=== PATIENT | female | born 1950 | race Caucasian/White ===

== ENCOUNTER 2021-04-22 12:57 | Outpatient (NON) | payer MEDICARE, OTHER, SELFPAY | END 2021-04-22 12:58 | disposition home or self-care (01) | LOC: CHSLAB 12:59 | PROVIDERS: Visit Provider Nurse Practitioner Family | DX: Z12.4 Encounter for screening for malignant neoplasm of cervix (principal) | CPT/HCPCS: 88175; G0145 ==

== ENCOUNTER 2021-06-04 16:01 | Outpatient (CLI) | payer MEDICARE, SELFPAY ==
[2021-06-04 17:05] LABS: Influenza A QL RT-PCR Negative (Negative); Influenza B QL RT-PCR Negative (Negative); SARS-CoV-2 RNA PCR Positive (Negative)
== END 2021-06-04 16:02 | disposition home or self-care (01) ==
LOC: CHSLAB 16:07
PROVIDERS: PCP Family Medicine; Visit Provider Nurse Practitioner Family
DX: J06.9 Acute upper respiratory infection, unspecified (principal); Z20.822 Contact with and (suspected) exposure to COVID-19
CPT/HCPCS: 87502; C9803; U0003; U0005

== ENCOUNTER 2021-06-05 11:03 | Outpatient (CLI) | payer MEDICARE, OTHER, SELFPAY ==
--- NOTE | 2021-06-05 11:10 | PC.NURSE ---
Pt to room 212 amb. A&Ox3. [facility] plan of care explained, consent signed. Pt has no questions or concerns. Oriented to room. Call matthew in reach, reminded to call with needs.
[2021-06-05] MEDS: ACETAMINOPHEN 325 MG TABLET 650 MG PO (11:29)
[2021-06-05] MEDS: diphenhydrAMINE HCl CAP 25 MG CAPSULE PO (11:30)
[2021-06-05] MEDS: FAMOTIDINE 20 MG TABLET PO (11:30)
[2021-06-05 11:34] VITALS: BP 117/70; PULSE 93; RESP 20; TEMP 38.1; O2SAT 97
--- NOTE | 2021-06-05 13:16 | PC.NURSE ---
Pt has no complaints. Discharged to home amb.
== END 2021-06-05 11:04 | disposition home or self-care (01) ==
LOC: CHSTREATRM 11:04
PROVIDERS: PCP Nurse Practitioner Family; Visit Provider Nurse Practitioner Family
DX: U07.1 COVID-19 (principal)
CPT/HCPCS: A9270; J7050; M0243; Q0244

== ENCOUNTER 2024-04-18 13:44 | Outpatient (CLI) | payer MEDICARE, OTHER, SELFPAY ==
--- NOTE | ~2024-04-18 | MM_ITS ---
EXAMINATION: MM screening clotilde BI w trever HISTORY: Screening TECHNIQUE: Craniocaudal and mediolateral oblique 3-D tomosynthesis images were obtained and synthetic 2-D images were generated. CAD analysis was submitted and interpreted. COMPARISON: 04/08/2018. BREAST PARENCHYMAL COMPOSITION: Dense: The breasts are heterogeneously dense, which may obscure small masses FINDINGS: There is no evidence of suspicious mass, calcification, or architectural distortion to sugg est malignancy in either breast. There has been no suspicious interval change. IMPRESSION: 1. No mammographic evidence of malignancy. 2. Recommend routine screening mammography in one year. BI-RADS Category 1: Negative Reviewed, dictated and finalized at location B.
== END 2024-04-18 13:45 | disposition home or self-care (01) ==
LOC: CHSIMG 13:47
PROVIDERS: PCP Family Medicine; Visit Provider Family Medicine
DX: Z12.31 Encounter for screening mammogram for malignant neoplasm of breast (principal)
CPT/HCPCS: 77063; 77067

== ENCOUNTER 2024-06-08 09:49 | Outpatient (CLI) | payer MEDICARE, SELFPAY ==
[2024-06-08 10:06] LABS: Hematocrit 41.5 % (35.0-42.0); Hemoglobin 14.2 g/dL (11.7-13.8); Mean Corpuscular HGB Conc 34.2 g/dL (32-36); Mean Corpuscular Hemoglobin 30.7 pg (27.0-31.0); Mean Corpuscular Volume 89.6 fL (78.0-102.0); Mean Platelet Volume 8.8 fl (9.2-11.8); Platelet Count Result 174 K/mm3 (150-420); Red Blood Count 4.63 M/mm3 (4.20-5.40); Red Cell Distribution Width 12.8 % (11.6-14.4); White Blood Count 3.8 K/mm3 (4.8-10.8)
[2024-06-08 10:31] LABS: Hemoglobin A1C 5.5 % (<5.7)
[2024-06-08 10:54] LABS: Alanine Aminotransferase 42 U/L (14-59); Alkaline Phosphatase 83 U/L (46-116); Anion Gap 10 mmol/L (4-12); Aspartate Amino Transferase 35 U/L (15-37); Bilirubin,Total 0.5 mg/dL (0.00-1.00); Blood Urea Nitrogen 17 mg/dL (7-18); Calcium 9.3 mg/dL (8.5-10.1); Carbon Dioxide 30 mmol/L (21-32); Chloride 103 mmol/L (98-108); Cholesterol 187 mg/dL (0-200); Estimated Glomerular Filt Rate > 60; Glucose 109 mg/dL (70-99); HDL Direct 49 mg/dL (40-60); LDL Cholesterol Calculated 115 mg/dL (<130); Osmolality Calculated 298 mOsm/kg (285-295); Potassium 5.1 mmol/L (3.5-5.1); Sodium 143 mmol/L (136-145); Total Protein 7.4 g/dL (6.4-8.2); Triglycerides 113 mg/dL (0-150)
[2024-06-08 11:00] LABS: Thyroid Stimulating Hormone Reflex 2.37 u/IU/mL (0.36-3.74)
[2024-06-08 11:04] LABS: Band Neutrophils Percent 0 % (0-6); Basophils Absolute Manual 0.03 K/mm3 (0-0.1); Basophils Percent Manual 1 % (0-1); Eosinophils Absolute Manual 0.07 K/mm3 (0.02-0.50); Eosinophils Percent Manual 2 % (1-6); Lymphocytes Absolute Manual 0.79 K/mm3 (1.1-4.5); Lymphocytes Percent Manual 21 % (18-44); Monocytes Percent Manual 8 % (3-9); Neutrophils Absolute Manual 2.58 K/mm3 (1.7-7.2); Neutrophils Percent Manual 68 % (46-73); Platelet Estimate Adequate (Adequate); Total Cells Counted 100
== END 2024-06-08 09:50 | disposition home or self-care (01) ==
LOC: CHSLAB 09:51
PROVIDERS: PCP Family Medicine; Visit Provider Nurse Practitioner Family
DX: Z13.6 Encounter for screening for cardiovascular disorders (principal); Z13.83 Encounter for screening for respiratory disorder NEC; Z13.89 Encounter for screening for other disorder; G47.00 Insomnia, unspecified; Z13.1 Encounter for screening for diabetes mellitus; M54.30 Sciatica, unspecified side
CPT/HCPCS: 36415; 80053; 80061; 83036; 84443; 85025

== ENCOUNTER 2024-09-30 18:08 | Emergency (ER) | payer MEDICARE, OTHER, SELFPAY ==
[2024-09-30] VITALS (24 sets, daily range): BP systolic 168–208; BP diastolic 82–99; PULSE 73–88; RESP 12–18; TEMP 36.4; O2SAT 96–100
--- NOTE | ~2024-09-30 | CT_ITS ---
EXAMINATION: CT brain wo con DATE: 09/30/2024 18:27 INDICATION: CVA, unable to move Lt. leg . TECHNIQUE: Computed tomography (CT) of the head was performed without intravenous contrast. The mA wa s adjusted according to patient size. Iterative reconstruction technique was employed. The dose-lengt h product was 605.33 mGy-cm. COMPARISON: None. FINDINGS: No acute intracranial hemorrhage or extra-axial fluid collection. No hydrocephalus, mass, or herniation. No acute ischemic infarct. Subtle hypodensity in the posterior limb of the internal capsule on the ri ght (axial image 29/64). Unremarkable dural venous sinus attenuation. No acute osseous abnormality. The aerated spaces are clear. IMPRESSION: No acute intracranial hemorrhage. Subtle hypodensity in the posterior limb of the internal capsule on the right, may represent small fo wale infarct. Consider MR of the brain for further evaluation. Results reported telephonically to Dr. Hernandez by Dr. Rausch at 6:36PM on 09/30/2024. Reviewed, dictated and finalized at location K. IMPRESSION: No acute intracranial hemorrhage. Subtle hypodensity in the posterior limb of the internal capsule on the right, may represent small focal infarct. Consider MR of the brain for further evaluat ion. Results reported telephonically to Dr. Hernandez by Dr. Rausch at 6:36PM on 09/30.
--- OUTSIDE RECORDS SUMMARY | 2024-09-30 18:09 | XMS_ITS | Clinical Summary ---
Author Organization [facility] Address [address] [place] [address] Care Team Providers Care Oxidized Finish Plater Name Role Phone Unavailable Primary Care Provider Unavailabl e Social History Tobacco Use Types Packs/Day Years Used Date Smoking Tobacco: Never Assessed Comments Unknown Sex and Gender Information Value Date Recorded Sex Assigned at Not on file Legal Sex Female 8:14 PM CDT Gender Identity Not on file Sexual Orientation Not on file Plan of Treatment Health Maintenance Due Date Last Done Comments Colorectal Cancer Screening Colonoscopy (10 Years) 1950 Hepatitis C 1970 DTaP, Tdap and Td Vaccines ( 1 - Tdap) 11/24/1971 Mammogram Screening 1992 Zoster Vaccines (1 of 2) 2002 Dexa Scan (General) 2017 Pneumococcal Vaccine: 65+ Ye ars (1 of 1 - PCV) 2017 COVID-19 Vaccine ( - 2023-2 5 season) 2024 Influenza Adult (#1) 2024 RSV Immunization or 60+ Years (1 - 1-dose 75+ series) 11/24/2027 Meningococcal B Vaccine Aged Out No l onger eligible based on patient's age to complete this topic Meningococcal Vaccine Aged Out No holly lakisha eligible based on patient's age to complete this topic RSV Immunizations Under 20 Months Aged Out No longer eligible based on patient's age to complete this topic
--- NOTE | 2024-09-30 18:10 | PC.NURSE ---
Per Dr Hernandez patient is to remain NPO, no dysphagia assessment done.
--- NOTE | 2024-09-30 18:13 | ECG_ITS ---
Test Date: 2024-09-30 18:30:21 Measurements Intervals [place] Rate: 77 P: 61 WV: 195 QRS: 44 QRSD: 84 T: 88 QT: 392 QTc: 446 Interpretive Statements SINUS RHYTHM SEPTAL MYOCARDIAL INFARCTION , OF INDETERMINATE AGE [40+ ms Q WAVE IN V1/V2] ABNORMAL ECG No previous ECG available for comparison Electronically Signed On 10-01-2024 06:54:30 CDT by Renzo Clark M.D.
--- NOTE | 2024-09-30 18:15 | ED_ITS ---
HPI - Neuro Symptoms/Deficit General Chief Complaint: Neuro Symptoms/Deficit Stated Complaint: WEAKNESS Time Seen by Provider: 09/30/24 18:13 Source: patient and family Mode of arrival: wheelchair Limitations: no limitations History of Present Illness HPI Narrative: Patient is a 73-year-old female with left-sided weakness to include her arm and her leg for the past 20 minutes. Last known well 5:45 p.m.. This was an acute onset situation. No other complaints at this time. Onset (ago): minute(s) ( Twenty) Timing confirmed by: spouse and family member Location: left arm and left leg History of same: No Severity: moderate Quality: weak, numb, constant and improving ( patient noted left lower extremity improvement in the emergency room while examining the patient) Relieving factors: time Exacerbating factors: none Context: sudden onset On Anticoagulants: No Associated symptoms: weakness ( left upper and lower extremity) Treatments Prior to Arrival: none Related Data Home Medications ?Medication ?Instructions ?Recorded ?Confirmed ?Last Taken ?Type multivitamin 1 tablet PO DAILY 04/21/21 04/22/21 Unknown History Allergies Allergy/AdvReac Type Severity Reaction Status Date / Time quinine Allergy Unknown unknown Verified 09/30/24 18:16 Sulfa (Sulfonamide Allergy Unknown unknown Verified 09/30/24 18:16 Antibiotics) Sulfonamides Allergy Intermediate unknown Uncoded 09/30/24 18:16 1 SULFA 2.QUININE Allergy Unknown unknown Uncoded 09/30/24 18:16 NKFA Allergy Unknown unknown Uncoded 09/30/24 18:16 SULFAMERAZINE (Generic Allergy Y Uncoded 09/30/24 18:16 Allergy) Review of Systems 2 Review of Systems: All systems reviewed & are unremarkable except as noted in HPI and below Constitutional: Constitutional: Reports no additional constitutional complaints Eyes: Eyes: Reports no additional eye complaints ENT: Reports system reviewed and no additional complaints, except as documented Cardiovascular: Cardiovascular: Reports no additional cardiovascular complaints Respiratory: Respiratory: Reports no additional respiratory complaints Gastrointestinal: Gastrointestinal: Reports no additional gastrointestinal complaints Genitourinary: Genitourinary: Reports no additional female genitourinary complaints Musculoskeletal: Musculoskeletal: Reports no additional musculoskeletal complaints Integumentary/Breasts: Skin/Breast: Reports system reviewed and no additional complaints, except as docu Neurologic: Reports system reviewed and no additional complaints, except as documented Psychiatric: Psychiatric: Reports no additional psychiatric complaints Endocrine: Endocrine: Reports no additional endocrine complaints Hematologic/Lymphatic: Hematologic/Lymphatic: Reports no additional hematologic/lymphatic complaints Allergic/Immunologic: Allergic/Immunologic: Reports no additional allergic/immunologic complaints PMFSH Past Medical History Medical History Impacted cerumen of both ears Routine physical examination Encounter for screening mammogram for malignant neoplasm of breast Radiculopathy Surgical History Surgical History History of cholecystectomy History of appendectomy Family History Family History Father Heart disease Mother Diabetes mellitus Breast cancer Mets to brain and bone Social History Social History Smoking status: Never smoker Alcohol intake: never Substance use: never Substance use type: does not use Living arrangements: with family Additional living arrangements comments: , no children Occupation/Education: retired Gender identity (if verbalized by the patient): Female Exam 2 Const: General: healthy appearing Nutritional Appearance: well nourished Orientation/consciousness: patient oriented x3 Limitations: no limitations HENMT: Head: normal to inspection Ears: external ears normal F khloe/Nose/Sinus: Normal external nose present Eyes: Conjunctivae: conjunctivae normal Pupils: Equal, round and reactive pupils present EOM: EOMs intact bilaterally Neck: Neck: normal visual inspection Chest: Chest palpation & inspection: normal inspection of the chest Resp: Effort & Inspection: normal respiratory effort and not labored A uscultation: clear to auscultation bilaterally and no crackles Cardio: Rate: regular rate Rhythm: regular rhythm Heart sounds: no murmurs GI: Inspection: non-distended GI Palp: Yes Soft to palpation and No Tenderness to palpation present (GI) Auscultation: normal bowel sounds : General: Yes bladder normal to palpation Back/Spine/Pelvis: Back: no CVA tenderness Skin: General skin exam: normal color Rashes: no rashes Wounds: no wounds Neuro: General: patient oriented x3, No moves all extremities, no meningeal signs, No no focal motor deficits and CN's II-XI intact bilaterally Cranial nerves: Yes Nystagmus not present Speech: normal speech Gait exam (Neuro): gait abnormal Other: fast exam positive, NIH score is 3, GCS is 15 ( recheck NIH score at 6:34 p.m. and 1853 = 2) Extrem: General: normal to inspection Psych: Mental Status: mental status grossly normal Affect: normal affect Attitude: cooperative Course Vital Signs Vital signs: Vital Signs Oxygen Delivery Room Air 09/30/24 18:08 Temperature 36.4 C 09/30/24 18:13 Pulse Rate 73 09/30/24 19:33 Respiratory Rate 14 09/30/24 19:31 Blood Pressure 174/84 H 09/30/24 19:30 Pulse Oximetry 98 09/30/24 19:31 Oxygen Delivery Room Air 09/30/24 19:15 MDM - Neuro Symptoms/Deficit MDM Narrative Medical decision making narrative: patient is a 73-year-old female with left upper and lower extremity weakness acute onset 20 minutes prior to arrival. We will do stroke protocol at this time. I discussed the case with Dr. GAMA the neurologist at [facility] and he accepted the patient to be met in the emergency room. He wanted the patient as soon as possible so we will get Helicopter. Further he said do not add more blood pressure medicine. Current blood pressure is 160s to 170s. I gave blood pressure medicine of labetalol when the pressure was 220. specialist and not want aspirin or any blood thinners at this time. He wanted IV fluids. Lab Data Attestation: I reviewed the patient's lab results. 09/30/24 18:14 09/30/24 18:14 Labs: Lab Results 09/30/24 09/30/24 Range/Units 18:13 18:14 WBC 4.6 L (4.8-10.8) K/mm3 RBC 4.73 (4.20-5.40) M/mm3 Hgb 14.0 H (11.7-13.8) g/dL Hct 42.1 H (35.0-42.0) % MCV 89.0 (78.0-102.0) fL MCH 29.6 (27.0-31.0) pg MCHC 33.3 (32-36) g/dL RDW 12.9 (11.6-14.4) % Plt Count 169 (150-420) K/mm3 MPV 9.0 L (9.2-11.8) fl Immature Gran % (Auto) 0.2 H (0.0-0.0) % Neut % (Auto) 65.3 (50.0-70.0) % Lymph % (Auto) 25.5 (18.0-42.0) % [place] % (Auto) 6.9 (2.0-11.0) % Eos % (Auto) 1.7 (1.0-6.0) % Baso % (Auto) 0.4 (0.0-1.0) % Lymph # (Auto) 1.18 (1.10-4.50) K/mm3 [place] # (Auto) 0.32 (0.10-0.90) K/mm3 Eos # (Auto) 0.08 (0.02-0.50) K/mm3 Baso # (Auto) 0.02 (0.00-0.10) K/mm3 Abs Immat Gran (auto) 0.01 H (0.00-0.00) K/mm3 Absolute Neuts (auto) 3.02 (1.70-7.20) K/mm3 Absolute Nucleated RBC 0.00 (0.00-0.00) K/mm3 Nucleated RBC % 0.0 (0-0.0) % PT 10.4 (9.50-12.1) Seconds INR 0.9 APTT 27.9 (23.9-30.70) Sec Sodium 140 (136-145) mmol/L Potassium 3.4 L (3.5-5.1) mmol/L Chloride 102 (98-108) mmol/L Carbon Dioxide 28 (21-32) mmol/L Anion Gap 10 (4-12) mmol/L BUN 20 H (7-18) mg/dL Creatinine 0.89 (0.55-1.02) mg/dL Estim Creat Clear Calc 51 ml/min Estimated GFR > 60 (59 - ) Glucose 123 H (70-99) mg/dL POC Capillary Glucose 113 H (65-105) mg/dl Calculated Osmolality 293 (285-295) mOsm/kg Calcium 9.0 (8.5-10.1) mg/dL Total Bilirubin 0.4 (0.00-1.00) mg/dL AST 20 (15-37) U/L ALT 33 (14-59) U/L Alkaline Phosphatase 101 (46-116) U/L Troponin I 14.0 (0.00-60.4) ng/L Total Protein 8.1 (6.4-8.2) g/dL Albumin 4.1 (3.4-5.0) g/dL Imaging Data Attestation: I personally reviewed and interpreted this imaging study as follows: Radiologist's impression: CT scan of the head shows IMPRESSION: No acute intracranial hemorrhage. Subtle hypodensity in the posterior limb of the internal capsule on the right, may represent small focal infarct. Consider MR of the brain for further evaluation. ECG Data EKG #1: Attestation: I personally reviewed and interpreted this ECG as follows: ECG completion date: 09/30/24 ECG completion time: 18:32 EKG Interpretation: normal rate, no ectopy, non-specific ST changes, normal QRS, normal QT and NL axis Critical Care Time Critical Care Time Critical Care Time: Yes Total Critical Care Time: 45 Discharge Plan Discharge Clinical Impression: Acute CVA (cerebrovascular accident) Patient Disposition: Acute Care Hospital Condition: Guarded Prognosis Patient Language: Slovak Prescriptions: No Action multivitamin Tablet 1 tablet PO DAILY Follow-up/Referrals: Jayson Collazo DO [Primary Care Provider] - Time of Disposition: 19:46
[2024-09-30 18:16] LABS: Glucose Point of Care 113 mg/dl (65-105)
[2024-09-30 18:27] LABS: Basophils Absolute Auto 0.02 K/mm3 (0.00-0.10); Basophils Percent Auto 0.4 % (0.0-1.0); Eosinophils Absolute Auto 0.08 K/mm3 (0.02-0.50); Eosinophils Percent Auto 1.7 % (1.0-6.0); Hematocrit 42.1 % (35.0-42.0); Immature Granulocyte Absolute 0.01 K/mm3 (0.00-0.00); Immature Granulocyte Percent A 0.2 % (0.0-0.0); Lymphocytes Absolute Auto 1.18 K/mm3 (1.10-4.50); Lymphocytes Percent Auto 25.5 % (18.0-42.0); Mean Corpuscular HGB Conc 33.3 g/dL (32-36); Mean Corpuscular Hemoglobin 29.6 pg (27.0-31.0); Monocytes Absolute Auto 0.32 K/mm3 (0.10-0.90); Monocytes Percent Auto 6.9 % (2.0-11.0); Neutrophils Absolute Auto 3.02 K/mm3 (1.70-7.20); Neutrophils Percent Auto 65.3 % (50.0-70.0); Platelet Count Result 169 K/mm3 (150-420); Red Blood Count 4.73 M/mm3 (4.20-5.40); Red Cell Distribution Width 12.9 % (11.6-14.4); White Blood Count 4.6 K/mm3 (4.8-10.8)
[2024-09-30 18:39] LABS: INR 0.9; Partial Thromboplastin Time 27.9 Sec (23.9-30.70); Prothrombin Time 10.4 Seconds (9.50-12.1)
[2024-09-30 18:42] LABS: Alanine Aminotransferase 33 U/L (14-59); Albumin Level 4.1 g/dL (3.4-5.0); Alkaline Phosphatase 101 U/L (46-116); Anion Gap 10 mmol/L (4-12); Aspartate Amino Transferase 20 U/L (15-37); Bilirubin,Total 0.4 mg/dL (0.00-1.00); Blood Urea Nitrogen 20 mg/dL (7-18); Carbon Dioxide 28 mmol/L (21-32); Chloride 102 mmol/L (98-108); Estimated CRCL calculation 51 ml/min; Estimated Glomerular Filt Rate > 60; Glucose 123 mg/dL (70-99); Osmolality Calculated 293 mOsm/kg (285-295); Potassium 3.4 mmol/L (3.5-5.1); Sodium 140 mmol/L (136-145); Total Protein 8.1 g/dL (6.4-8.2)
[2024-09-30] MEDS: LABETALOL HCL INJ 100 MG/20 ML VIAL 10 MG IV PUSH (18:44)
[2024-09-30] MEDS: SODIUM CHLORIDE 0.9% IV 1,000 ML 150 ML IV CONT (20:00)
[2024-09-30 20:41] LABS: Add Urine Microscopic? YES; Appearance Urine Clear (Clear); Bilirubin Urine Negative (Negative); Blood Urine Negative (Negative); Color Urine Light Yellow (Yellow); Glucose Urine UA Negative (Negative); Ketones Urine Negative (Negative); Leukocyte Esterase Ur Trace LEU/UL (Negative); Nitrate Urine Negative (Negative); Protein Urine Negative (Negative); Specific Grav Ur <= 1.005 (1.010-1.020); Urobilinogen Urine 0.2 mg/dL (0.2-1.0)
[2024-09-30 20:45] LABS: WBC Urine None seen /hpf (0-3)
== END 2024-09-30 20:33 | disposition short-term general hospital (02) ==
PROVIDERS: Emergency Provider Emergency Medicine; PCP Family Medicine
DX: I63.9 Cerebral infarction, unspecified (principal)
CPT/HCPCS: 36415; 70450; 80053; 81001; 82948; 84484; 85025; 85610; 85730; 93005; 96361; 96374; 99285; J7030

== ENCOUNTER 2025-02-14 11:31 | Outpatient (CLI) | payer MEDICARE, OTHER, SELFPAY ==
[2025-02-14 11:45] LABS: Hematocrit 41.8 % (35.0-42.0); Hemoglobin 13.8 g/dL (11.7-13.8); Immature Granulocyte Percent A 0.5 % (0.0-0.0); Lymphocytes Absolute Auto 0.85 K/mm3 (1.10-4.50); Mean Corpuscular HGB Conc 33.0 g/dL (32-36); Mean Corpuscular Hemoglobin 30.3 pg (27.0-31.0); Mean Corpuscular Volume 91.7 fL (78.0-102.0); Nucleated Red Blood Cells Absolute Auto 0.00 K/mm3 (0.00-0.00); Nucleated Red Blood Cells Perc 0.0 % (0-0.0); Platelet Count Result 155 K/mm3 (150-420); Red Blood Count 4.56 M/mm3 (4.20-5.40); White Blood Count 5.9 K/mm3 (4.8-10.8)
--- OUTSIDE RECORDS SUMMARY | 2025-02-14 11:45 | XMS_ITS | Clinical Summary ---
Author Organization [facility] Address [address] [place] [address] Care Team Providers Care Stone Setter Apprentice Name Role Phone Unavailable Primary Care Provider [...] 1 - Tdap) 11/24/1971 Mammogram Screening 1992 Pneumococcal Vaccine: 50+ Ye ars (1 of 1 - PCV) 2002 Zoster Vaccines (1 of 2) 2002 Dexa Scan (General) 2017 COVID-19 Vaccine ( - 2023-2 5 season) 2024 RSV Immunization or 60+ Years (1 [...]
--- OUTSIDE RECORDS SUMMARY | 2025-02-14 11:45 | XMS_ITS | Clinical Summary ---
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 10/01/2024 Mixed hyperlipidemia 10/01/2024 Benign hypertension 10/01/2024 Resolved Problems Problem Noted Date Diagnosed Date Resolved Date Stroke-like symptom 10/01/2024 10/03/19 25 Elevated troponin 10/01/2024 10/02/2024 Elevated blood pressure read ing without diagnosis of hypertension 10/01/2024 10/02/2024 Encounters Date Type Department Care Team Description 02/06/2025 External Device Data ST[facility] ABSTRACTION Provider, Abstract 02/05/2025 External Device Data ST[facility] ABSTRACTION Provider, Abstract 02/05/2025 External Device Data STL ABSTRACTION Provider, Abstract 12/19/2024 External Device Data STL ABSTRACTION Provider, Abstract 12/04/2024 External Device Data STL ABSTRACTION Provider, Abstract 11/27/2024 External Device Data STL ABSTRACTION Provider, Abstract from Last 3 Months Social History Tobacco Use Types Packs/Day Years Used Date Smoking Tobacco: Never Smokeless Tobacco: Never Tobacco Cessation:Counseling Given: Not Answered Alcohol Use Standard Drinks/Week Comments Never 0 (1 standard drink = 0.6 oz pur e alcohol) Comments No Sex and Gender Information Value Date Recorded Sex Assigned at Not on file Legal Sex Female 7:31 PM CDT Gender Identity Not on file Sexual Orientation Not on file Last Filed Vital Signs Vital Sign Reading Time Taken Comments Blood Pressure 134/67 10/02/2024 12:02 PM CDT Pulse 76 10/02/2024 12:02 PM CDT Temperature 37.1 C (98.7 F) 10/02/2024 9:07 AM CDT Respiratory Rate 18 10/02/2024 12:0 2 PM CDT Oxygen Saturation 100% 10/02/2024 9:07 AM CDT Inhaled Oxygen Concentration - - Weight 66.1 kg (145 lb 11.6 oz) 10/01/2024 3:44 AM CDT Height 172.7 cm (5' 8) 10/01/2024 3:44 AM CDT Body Mass Index 22.16 10/01/2024 3:44 AM CDT Plan of Treatment Health Maintenance Due Date Last Done Comments DTAP/TDAP/TD VACCINES (1 - Tdap) 11/24/1971 BREAST CANCER SCREENING 1992 COLORECTAL SCREENING 1997 Colorectal Cancer Screening 1997 FIT-DNA Q 3 years 1997 FIT/FOBT Q 1 year 1997 Flex Sig/CT Colonography Q 5 years 1997 PNEUMOCOCCAL VACCINE 50+ YEARS (1 of 1 - PCV) 11/24/19 03 ZOSTER VACCINE (1 of 2) 2002 OSTEOPOROSIS SCREENING 2017 INFLUENZA VACCINE (#1) 2025 RSV VACCINE (60+ or ) (1 - 1-dose 75+ series) 11/24/2027 Insurance MEDICARE PART A AND B [employer] [facility] [employer] Medicare Part D Advance Directives For more information, please contact: [phone] * Full Code (Latest Code Status on File) Date Activated Date Inactivated Comments 10/01/2024 1:15 AM 10/02/2024 3:12 PM
[2025-02-14 12:06] LABS: Alanine Aminotransferase 43 U/L (6-35); Albumin Level 4.4 g/dL (3.5-5.1); Alkaline Phosphatase 84 U/L (38-126); Anion Gap 7 mmol/L (4-12); Aspartate Amino Transferase 39 U/L (14-36); Bilirubin,Total 0.8 mg/dL (0.2-1.3); Blood Urea Nitrogen 22 mg/dL (7-17); Calcium 9.6 mg/dL (8.4-10.2); Carbon Dioxide 29 mmol/L (22-30); Chloride 104 mmol/L (98-107); Estimated Glomerular Filt Rate 55; Glucose 99 mg/dL (65-110); Osmolality Calculated 293 mOsm/kg (285-295); Potassium 4.2 mmol/L (3.4-5.0); Sodium 140 mmol/L (137-145); Total Protein 7.4 g/dL (6.3-8.2)
[2025-02-14 12:37] LABS: Thyroid Stimulating Hormone Reflex 2.760 uIU/mL (0.465-4.68)
[2025-02-14 13:12] LABS: Vitamin B12 955.0 pg/mL (239-931)
== END 2025-02-14 11:32 | disposition home or self-care (01) ==
LOC: CHSLAB 11:33
PROVIDERS: PCP Family Medicine; Visit Provider Family Medicine
DX: E53.8 Deficiency of other specified B group vitamins (principal); R53.83 Other fatigue; E03.9 Hypothyroidism, unspecified; R74.01 Elevation of levels of liver transaminase levels
CPT/HCPCS: 36415; 80053; 80074; 82607; 82746; 84443; 85025

== ENCOUNTER 2025-03-05 08:46 | Outpatient (CLI) | payer MEDICARE, OTHER, SELFPAY ==
--- NOTE | ~2025-03-05 | DEXA_ITS ---
Bone Density Report Name: EDMUND SOUSA Age: 74 Sex: Female Ethnicity: White Date of : 1950 Indication: postmenopausal; screening for osteoporosis; Referring Provider: Jayson Collazo Study: Bone densitometry was performed. Exam Date: March 05, 2025 Accession number: [id number] Bone Density: Region BMD T-score Z-score Classification AP Spine(L1, L2, L3) 0.926 -0.8 1.4 Normal Femoral Neck (Left) 0.668 -1.6 0.3 Osteopenia Total Hip (Left) 0.839 -0.8 0.8 Normal Femoral Neck (Right) 0.619 -2.1 -0.1 Osteopenia Total Hip (Right) 0.810 -1.1 0.5 Osteopenia Femoral Neck Mean 0.644 -1.8 0.1 Osteopenia Total Hip Mean 0.824 -1.0 0.7 Normal World Health Organization criteria for BMD impression classify patients as: Normal (T-score at or above -1.0), Osteopenia (T-score between -1.0 and -2.5), or Osteoporosis (T-score at or below -2.5). 10-year Fracture Risk(1): Major Osteoporotic Fracture 12% Hip Fracture 2.7% Reported Risk Factors: [place] (), Neck BMD=0.619, BMI=21.7 (1) FRAX(R) Version 3.08. Fracture probability calculated for an untreated patient. Fracture probability may be lower if the patient has received treatment. Clinical Information Provided by Patient: Patient maximum height was 68 Menopause Age: 52 No regular weight bearing exercise Does not regularly consume dairy products Drinks caffeinated beverages Onset of menses at age 16 Number of children 0 Impression: The patient has low bone mass, based on the Right Femoral Neck T-score. Discussion: BONE DENSITY IS LOW AT ONE OR MORE SKELETAL SITES. This patient's lowest T-score is low at one or more skeletal sites. It meets the World Health Organization's (WHO) criteria for ?low bone mass? (T-score between -1.0 and -2.5). The patient's 10-year risk of fracture as calculated by FRAX is less than the threshold where pharmacological therapy is recommended by the National Osteoporosis Foundation (NOF). However, all treatment decisions require clinical judgment and consideration of individual patient factors, including patient preferences, comorbidities, previous drug use, risk factors not captured in the FRAX model (e.g., frailty, falls, vitamin D deficiency, increased bone turnover, interval significant decline in bone density) and possible under or overestimation of fracture risk by FRAX. The patient should follow a healthful lifestyle (good nutrition with adequate calcium and vitamin D, and appropriate weight-bearing exercise). Follow-Up: Consider repeating this study in 2 to 3 years to reassess this patient's status, or sooner if there is some new clinical indication. Reported by: NARENDRA on 03/15/2025 8:02:00 AM. Reviewed, dictated and finalized at location Q.
--- OUTSIDE RECORDS SUMMARY | 2025-03-05 08:54 | XMS_ITS | Clinical Summary ---
Author Organization [facility] Address [address] [place] [address] Phone Care Team Providers Care Manager Fine Dining Name Role Phone Unavailable Primary Care Provider [...] drink = 0.6 oz pur e alcohol) Feeling Safe Answer Date Recorded Are you in a relationship wi th someone who hurts you emotionally and/or physically? No 09/30/2024 Food Insecurity Answer Date Recorded Patient needs follow up regardin 10/25/2024 Transportation Needs Answer Date Record ed Patient needs follow up regardin 10/25/2024 Housing Stability Answer Date Recorded Social/Environmental Concerns No concerns Utility Needs Answer Date Recorded Patient needs follow up regardin 10/25/2024 Comments No Sex and Gender Information Value [...] MEDICARE PART A AND B [employer]IC[employer] Medicare Part D Advance Directives For more information, please contact: [phone] * Full Code (Latest Code Status on File) Date Activated Date Inactivated Comments 10/01/2024 1:15 AM 10/02/2024 3:12 PM
--- OUTSIDE RECORDS SUMMARY | 2025-03-05 08:54 | XMS_ITS | Clinical Summary ---
Author Organization [facility] Address [address] [place] [address] Care Team Providers Care Teleradiologist Name Role Phone Unavailable Primary Care Provider [...]
[2025-03-05 09:20] LABS: Hemoglobin A1C 5.8 % (<5.7)
[2025-03-05 09:38] LABS: Cholesterol 134 mg/dL (0-200); HDL Direct 49 mg/dL; Triglycerides 174 mg/dL (<150)
== END 2025-03-05 08:47 | disposition home or self-care (01) ==
LOC: CHSIMG 08:48
PROVIDERS: PCP Family Medicine; Visit Provider Family Medicine
DX: E11.9 Type 2 diabetes mellitus without complications (principal); I63.9 Cerebral infarction, unspecified; M85.89 Other specified disorders of bone density and structure, multiple sites
CPT/HCPCS: 36415; 77080; 80061; 83036

== ENCOUNTER 2025-06-13 13:15 | Outpatient (CLI) | payer MEDICARE, OTHER, SELFPAY ==
--- NOTE | ~2025-06-13 | MM_ITS ---
EXAMINATION: MM screening clotilde BI w trever HISTORY: Screening. TECHNIQUE: Craniocaudal and mediolateral oblique 3-D tomosynthesis images were obtained and synthetic 2-D images were generated. CAD analysis was submitted and interpreted. COMPARISON: 2023 BREAST PARENCHYMAL COMPOSITION: Dense: The breasts are heterogeneously dense FINDINGS: No suspicious masses are seen. There are no suspicious calcifications. No unexplained architectural distortion is seen. There are no skin or nipple abnormalities identified. There is no adenopathy seen on the images submitted. IMPRESSION: No mammographic evidence to suggest malignancy is seen. The patient may return to screening mammography as per ACR guidelines. BI-RADS 1 - Negative. Reviewed, dictated and finalized at location C. ITECTURAL PRACTICE MANAGER
== END 2025-06-13 13:16 | disposition home or self-care (01) ==
PROVIDERS: PCP Family Medicine; Visit Provider Family Medicine
DX: Z12.31 Encounter for screening mammogram for malignant neoplasm of breast (principal)
CPT/HCPCS: 77063; 77067